=== PATIENT | male | born 1975 | race Two or more races ===

== ENCOUNTER 2016-05-23 14:19 | Emergency (ER) | payer MEDICAID ==
[~2016-05-23] VITALS: Ht 175.3 cm; Wt 81.6 kg
[2016-05-23] MEDS ORDERED: NKM (14:46)
[2016-05-23 15:30] VITALS: BP 121/77
[2016-05-23 15:58] LABS: APPEARANCE,URINE CLEAR; KETONES,URINE NEGATIVE (NEGATIVE); LEUKOCYTE ESTERASE ,URINE NEGATIVE (NEGATIVE); NITRITE,URINE NEGATIVE (NEGATIVE); PH,URINE 5 (4.5-8.0); PROTEIN,URINE NEGATIVE (NEGATIVE); UROBILINOGEN,URINE NORMAL MG/DL (0.0-1.0)
[2016-05-23 15:59] LABS: EOSINOPHILS % (AUTO) 1.2 % (0.0-3.0); LYMPHOCYTES % (AUTO) 27.3 % (20.0-45.0); MEAN CORPUSCULAR HEMOGLOBIN 32.7 PG (27.0-31.0); MEAN CORPUSCULAR HGB CONC 34.7 G/DL (32.0-36.0); MEAN CORPUSCULAR VOLUME 94 FL (80-99); MEAN PLATELET VOLUME 8.2 FL (6.5-10.1); NEUTROPHILS % (AUTO) 64.5 % (45.0-75.0); PLATELET COUNT 227 K/UL (150-450); RED BLOOD COUNT 5.38 M/UL (4.70-6.10); RED CELL DISTRIBUTION WIDTH 10.2 % (11.6-14.8); WHITE BLOOD COUNT 5.6 K/UL (4.8-10.8)
[2016-05-23] MEDS ORDERED: Mylanta II UD 30ml ORAL ONE (16:00)
[2016-05-23] MEDS ORDERED: Famotidine 20 MG/ 2ML VIAL IVP ONE (16:00)
[2016-05-23 16:11] LABS: PROTHROMBIN TIME 10.4 SEC (9.30-11.50)
[2016-05-23 16:18] LABS: TROPONIN I < 0.30 ng/mL (<=0.30)
[2016-05-23 16:21] LABS: ALANINE AMINOTRANSFERASE 36 U/L (3-41); ALBUMIN/GLOBULIN RATIO 1.6 (1.0-2.7); ANION GAP 17 (5-15); ASPARTATE AMINO TRANSFERASE 37 U/L (5-40); CALCIUM 9.1 mg/dL (8.6-10.2); CARBON DIOXIDE 27 mEQ/L (20-30); CHLORIDE 96 mEQ/L (98-107); CREATININE 0.6 mg/dL (0.7-1.2); GLOMERULAR FILTRATION RATE > 60 mL/min (>60); HEMOLYSIS 45; LIPASE 116 U/L (< 60); POTASSIUM 4.7 mEQ/L (3.4-4.9); SODIUM 140 mEQ/L (135-145); TOTAL PROTEIN 7.2 g/dL (6.6-8.7)
[2016-05-23 16:30] VITALS: BP 124/82
[2016-05-23 17:46] VITALS: BP 133/84
[2016-05-23] MEDS ORDERED: PEPCID20 MG ORAL (18:08)
[2016-05-23] MEDS ORDERED: NORCO 5-325 TA1 EAC1 ORAL (18:08)
[2016-05-23 18:21] VITALS: BP 133/84
--- NOTE | 2016-05-24 01:55 | Emergency Room Report ---
History of Present Illness General Chief Complaint: Abdominal Pain Source: Patient Present Illness HPI Patient is a 40-year-old male brought in by self for increased epigastric pain. The patient gradual onset of symptoms. Patient was noted to have a burning sensation to the epigastric area which was moderate in nature. Patient reports intermittent alcohol use. He denies any black or bloody stools or hematemesis . The pain is unchanged by food. He had not vomiting or having any diarrhea. He denied prior abdominal surgery. He has not been febrile. Allergies: Coded Allergies: No Known Allergies (Unverified , 05/23/16) Patient History Past Medical History: see triage record Reviewed Nursing Documentation: PMH: Agreed, PSxH: Agreed Nursing Documentation-PMH Past Medical History: No Stated History Review of Systems All Other Systems: negative except mentioned in HPI Physical Exam Vital Signs Date Time Temp Pulse Resp B/P Pulse Ox O2 Delivery O2 Flow Rate FiO2 05/23/16 14:39 98.2 79 16 118/72 97 Room Air Sp02 EP Interpretation: reviewed, normal General Appearance: normal inspection, well appearing, no apparent distress, alert, GCS 15 Head: atraumatic ENT: normal ENT inspection, hearing grossly normal, normal voice Neck: normal inspection, full range of motion, supple, no bony tend Respiratory: normal inspection, lungs clear, normal breath sounds, no respiratory distress, no retraction, no wheezing Cardiovascular #1: regular rate, rhythm, no edema Gastrointestinal: normal inspection, normal bowel sounds, non tender, soft, no guarding, no hernia, tenderness - epigastric Genitourinary: no CVA tenderness Musculoskeletal: normal inspection, back normal, normal range of motion Neurologic: normal inspection, alert, responsive, speech normal Psychiatric: normal inspection, judgement/insight normal, mood/affect normal Skin: normal inspection, normal color, no rash Medical Decision Making Diagnostic Impression: Primary Impression: Abdominal pain Additional Impression: Pancreatitis ER Course Patient presented for abdominal pain. Differential diagnoses included ischemic bowel, appendicitis, perforated viscus, abdominal aortic aneurysm, inferior myocardial infarction, viral gastroenteritis Because of complexity of patient's case laboratory testing and imaging studies were ordered. I laboratory testing was notable for a mildly elevated lipase. Patient was noted to have a normal white blood count. CT the abdomen and pelvis read by radiology showed no evidence of free air or appendicitis. The patient given a GI cocktail. Patient was given prescription for pain medications due to pancreatitis. The patient was advised alcohol cessation.The patient is advised to follow up with primary care doctor in 1-2 days. Patient is advised to return if any worsening condition or if any changes in status that are concerning. Laboratory Tests Test 05/23/16 15:47 White Blood Count 5.6 K/UL (4.8-10.8) Red Blood Count 5.38 M/UL (4.70-6.10) Hemoglobin 17.6 G/DL (14.2-18.0) Hematocrit 50.7 % (42.0-52.0) Mean Corpuscular Volume 94 FL (80-99) Mean Corpuscular Hemoglobin 32.7 PG (27.0-31.0) H Mean Corpuscular Hemoglobin Concent 34.7 G/DL (32.0-36.0) Red Cell Distribution Width 10.2 % (11.6-14.8) L Platelet Count 227 K/UL (150-450) Mean Platelet Volume 8.2 FL (6.5-10.1) Neutrophils (%) (Auto) 64.5 % (45.0-75.0) Lymphocytes (%) (Auto) 27.3 % (20.0-45.0) Monocytes (%) (Auto) 6.0 % (1.0-10.0) Eosinophils (%) (Auto) 1.2 % (0.0-3.0) Basophils (%) (Auto) 1.0 % (0.0-2.0) Prothrombin Time 10.4 SEC (9.30-11.50) Prothrombin Time INR 1.0 (0.9-1.1) PTT 22 SEC (23-33) L Urine Color Pale yellow Urine Appearance Clear Urine pH 5 (4.5-8.0) Urine Specific [place] 1.015 (1.005-1.035) Urine Protein Negative (NEGATIVE) Urine Glucose (UA) 4+ (NEGATIVE) H Urine Ketones Negative (NEGATIVE) Urine Occult Blood Negative (NEGATIVE) Urine Nitrite Negative (NEGATIVE) Urine Bilirubin Negative (NEGATIVE) Urine Urobilinogen Normal MG/DL (0.0-1.0) Urine Leukocyte Esterase Negative (NEGATIVE) Sodium Level 140 mEQ/L (135-145) Potassium Level 4.7 mEQ/L (3.4-4.9) Chloride Level 96 mEQ/L (98-107) L Carbon Dioxide Level 27 mEQ/L (20-30) Anion Gap 17 (5-15) H Blood Urea Nitrogen 6 mg/dL (7-23) L Creatinine 0.6 mg/dL (0.7-1.2) L Estimate Glomerular Filtration Rate > 60 mL/min (>60) Glucose Level 316 mg/dL (74-106) H Calcium Level 9.1 mg/dL (8.6-10.2) Total Bilirubin 0.8 mg/dL (0.0-1.2) Aspartate Amino Transferase (AST) 37 U/L (5-40) Alanine Aminotransferase (ALT) 36 U/L (3-41) Alkaline Phosphatase 77 U/L (40-129) Troponin I < 0.30 ng/mL (<=0.30) Total Protein 7.2 g/dL (6.6-8.7) Albumin 4.5 g/dL (3.5-5.2) Globulin 2.7 g/dL Albumin/Globulin Ratio 1.6 (1.0-2.7) Lipase 116 U/L (< 60) H Last Vital Signs Date Time Temp Pulse Resp B/P Pulse Ox O2 Delivery O2 Flow Rate FiO2 05/23/16 18:21 97.1 77 21 133/84 99 Room Air Status: improved Disposition: HOME, SELF-CARE Condition: Stable Scripts Famotidine (PEPCID) 20 Mg Tablet 20 MG ORAL DAILY, #30 TAB 0 Refills Prov: Fausto Kenney 05/23/16 Hydrocodone Bit/Acetaminophen 5-325* (NORCO 5-325 TABLET*) 1 Each Tablet 1 TAB ORAL Q4H Y for For Pain, #30 TAB Prov: Fausto Kenney 05/23/16 Patient Instructions: Acute Pancreatitis, [id number] Fausto Kenney May 24, 2016 01:55
--- NOTE | 2016-05-24 09:47 | Diagnostic Imaging Report ---
Indication: Abdominal pain Technique: Continuous helical transaxial imaging of the abdomen and pelvis was obtained from the lung bases to the pubic symphysis during intravenous contrast administration. Coronal 2-D reformats were also obtained. Study obtained in a Siemens sensation [address] Total Dose length Product (DLP): [address] Dose Index Volume (CTDIvol): 17 mGy Comparison: None Findings: The lung bases are clear. The liver is low in attenuation. Gallbladder, spleen, pancreas, adrenal glands and kidneys are unremarkable. There is a mildly distended small bowel loop in the left-sided abdomen with fecalization. Suspect enteritis/ileus. There is no free fluid or evidence of bowel obstruction. Normal appendix noted. Urinary bladder is unremarkable. There is a 4 x 2 cm lobulated soft tissue mass involving the posterior lateral chest wall between the tendon to limit the ribs on the right. The nature of the mass is unknown but does contain calcification. Impression: Suspected enteritis. Please correlate clinically. 4 x 2 cm soft tissue mass right chest wall. Etiology is uncertain. Further imaging evaluation if needed could be done with MR and/or ultrasound. Please correlate clinically. The CT scanner at [facility] is accredited by the [employer] and the scans are performed using protocols designed to limit radiation exposure to as low as reasonably achievable to attain images of sufficient resolution adequate for diagnostic evaluation.
--- NOTE | 2016-05-24 10:01 | Cardiology Report ---
APPROVED REPORT EKG Measurement Heart [id number] VT [id number] Normal sinus rhythm Normal ECG
== END 2016-05-23 18:27 | disposition home or self-care (01) ==
LOC: EMR 16:26
DX: K85.90 Acute pancreatitis without necrosis or infection, unspecified (principal)
CPT/HCPCS: 36415; 74177; 80053; 81003; 83690; 84484; 85025; 85610; 85730; 93005; 96360; 96374; 96375; 99284; J2405; Q9967; S0028